=== PATIENT | female | born 1950 | race Caucasian/White ===

== ENCOUNTER 2018-07-15 12:32 | Emergency (ER) | payer MEDICARE ==
[2018-07-15] MEDS ORDERED: Sodium Chloride 0.9% 10 ML Syringe FLUSH PRN (13:19)
[2018-07-15] MEDS ORDERED: Nitroglycerin 0.4 MG Tab.SL SL ONE (13:19)
[2018-07-15] MEDS ORDERED: Sodium Chloride 0.9% 500 ML IV ONE (13:36)
--- NOTE | 2018-07-15 14:02 | EDM.PDOC ---
ED HPI GENERAL MEDICAL PROBLEM - General Chief Complaint: Chest Pain Stated Complaint: CHEST PAIN Time Seen by Provider: 07/15/18 13:15 Source of Information: Reports: Patient, Family History Limitations: Reports: No Limitations - History of Present Illness INITIAL COMMENTS - FREE TEXT/NARRATIVE: Kerri is a 67 year old female who presents to the ED today with family with c/ o of an ache in her left chest, pain is non radiating, pain started around 0900 , she has not taken anything for it. Patient endorses mild sob but feels that this may be anxiety related. Patient with significant recent hx including 9 stents being placed for a STEMI at [facility] and and Sunday this past week. Patient was discharged home on Plavix, Metoprolol, Lisinopril and Lipitor. Patient is still taking a daily aspirin. Patient was not discharged with any NTG. She has not taken anything for her symptoms today. The ache does not worsen with activity, really doesn't improve with rest, does not change with deep breath. Patient former smoker, no fever, no URI symptoms, no hx of blood clots. Patient is on Tramadol for her chronic back pain, last dose of this was last night. Onset: Today, Sudden Left Chest Pain Score (Numeric/FACES): 4 - Related Data Allergies Allergy/AdvReac Type Severity Reaction Status Date / Time No Known Allergies Allergy Verified 09/20/16 10:44 Home Meds: Home Meds Albuterol Sulfate [Proair Hfa] 2 puff IH Q4H PRN 03/20/16 [History] Amitriptyline [Elavil] 50 mg PO BEDTIME 03/20/16 [History] Aspirin [Adult Low Dose Aspirin EC] 81 mg PO DAILY 03/20/16 [History] Cholecalciferol (Vitamin D3) [Vitamin D3] 1,000 units PO DAILY 03/20/16 [History ] Fish Oil/DHA/EPA [Fish Oil 1,200 MG] 1 tab PO DAILY 03/20/16 [History] Fluticasone/Salmeterol [Advair 250-50 Diskus] 1 puff IH BID 03/20/16 [History] Lisinopril 5 mg PO DAILY 03/20/16 [History] Multivit-Min/FA/Lycopene/Lut [Centrum Silver Tablet] 1 tab PO DAILY 03/20/16 [ History] traMADol [Ultram] 50 mg PO Q6H PRN 07/26/16 [History] Clopidogrel [Plavix] 75 mg PO DAILY 07/15/18 [History] Metoprolol Succinate 25 mg PO DAILY 07/15/18 [History] atorvaSTATin [Lipitor] 80 mg PO BEDTIME 07/15/18 [History] Past Medical History Cardiovascular History: Reports: [place], Stents Musculoskeletal History: Reports: Back Pain, Chronic, Other (See Below) Other Musculoskeletal History: L shoulder pain. L leg pain. L elbow - Infectious Disease History Infectious Disease History: Reports: Chicken Pox - Past Surgical History Cardiovascular Surgical History: Reports: Coronary Artery Stent Social & Family History - Tobacco Use Smoking Status *Q: Never Smoker - Caffeine Use Caffeine Use: Reports: Coffee - Recreational Drug Use Recreational Drug Use: No ED ROS GENERAL - Review of Systems Review Of Systems: ROS reveals no pertinent complaints other than HPI. ED EXAM, GENERAL - Physical Exam Exam: See Below Exam Limited By: No Limitations General Appearance: Alert, WD/WN, Anxious Eye Exam: Bilateral Eye: EOMI Throat/Mouth: Normal Inspection, Normal Oropharynx Head: Atraumatic Neck: Normal Inspection, Supple, Non-Tender, Full Range of Motion Respiratory/Chest: No Respiratory Distress, Lungs Clear, Normal Breath Sounds, No Accessory Muscle Use, Chest Non-Tender Cardiovascular: Normal Peripheral Pulses, Regular Rate, Rhythm, No Edema, No Murmur GI/Abdominal: Normal Bowel Sounds, Soft, Non-Tender, No Distention Back Exam: Normal Inspection Extremities: Normal Inspection, Normal Range of Motion Neurological: Alert, Oriented, CN II-XII Intact Psychiatric: Normal Affect, Normal Mood Skin Exam: Warm, Dry, Intact, Ecchymosis (ecchymosis to right wrist where heart cath was performed) Lymphatic: No Adenopathy EKG INTERPRETATION EKG Date: 07/15/18 Rhythm: NSR Morrow: LAD-Left Morrow Deviation P-Wave: Present QRS: Normal ST-T: Other (T wave inversion in anterior and lateral leads) QT: Normal Course - Vital Signs Last Recorded V/S: Last Vital Signs Temp 35.9 C 07/15/18 12:40 Pulse 73 07/15/18 13:38 Resp 19 07/15/18 13:38 BP 133/73 07/15/18 13:38 Pulse Ox 97 07/15/18 13:38 Left sided chest ache, non radiating in post several stent placement at [facility] this past and Sunday. Please refer to HPI and focused exam. EKG with no acute ischemic findings, inverted T waves, no ectopy. Pain improved here with NTG from a 4 to a 2, did cause soft blood pressure so additional NTG not given, patient did get a dose of Tramadol, blood work returns with Troponin of 2, otherwise unremarkable, CXR unremarkable. I discussed patient's case with Cardiology at [facility], Dr. Schmitt who would like patient transferred back for repeat cath. Patient did have her aspirin and Plavix today. Patient update on plan of care and agreeable. Patient discharged via ALS in stable condition. - Orders/Labs/Meds Orders: Active Orders 24 hr Category Date Time Status Peripheral IV Care [RC] . DIRECTED Care 07/15/18 13:19 Active Sodium Chloride 0.9% [Saline Flush] Med 07/15/18 13:19 Active 10 ml FLUSH ASDIRECTED PRN Peripheral IV Insertion Adult [OM.PC] Routine Oth 07/15/18 13:19 Ordered Medication Orders Sodium Chloride (Saline Flush) 10 ml FLUSH ASDIRECTED PRN PRN Reason: Keep Vein Open Last Admin: 07/15/18 13:37 Dose: 10 ml Labs: Laboratory Tests 07/15/18 07/15/18 Range/Units 13:25 13:25 WBC 7.1 (4.5-11.0) K/uL RBC 4.58 (3.30-5.50) M/uL Hgb 13.5 (12.0-15.0) g/dL Hct 40.5 (36.0-48.0) % MCV 88 (80-98) fL MCH 30 (27-31) pg MCHC 33 (32-36) % Plt Count 328 (150-400) K/uL Neut % (Auto) 61 (36-66) % Lymph % (Auto) 25 (24-44) % Brooke % (Auto) 9 H (2-6) % Eos % (Auto) 4 (2-4) % Baso % (Auto) 1 (0-1) % Sodium 140 (140-148) mmol/L Potassium 4.0 (3.6-5.2) mmol/L Chloride 106 (100-108) mmol/L Carbon Dioxide 25 (21-32) mmol/L Anion Gap 9.0 (5.0-14.0) mmol/L BUN 13 (7-18) mg/dL Creatinine 0.7 (0.6-1.0) mg/dL Est Cr Clr Drug Dosing 66.28 mL/min Estimated GFR (MDRD) > 60 (>60) Glucose 101 (74-106) mg/dL Calcium 9.8 (8.5-10.1) mg/dL Total Bilirubin 0.9 (0.2-1.0) mg/dL AST 37 (15-37) U/L ALT 32 (12-78) U/L Alkaline Phosphatase 69 (46-116) U/L Troponin I 2.002 H* (0.000-0.056) ng/mL Total Protein 7.5 (6.4-8.2) g/dL Albumin 3.7 (3.4-5.0) g/dL Globulin 3.8 H (2.3-3.5) g/dL Albumin/Globulin Ratio 1.0 L (1.2-2.2) Meds: Medications Generic Name Dose Route Start Last Admin Trade Name Freq PRN Reason Stop Dose Admin Sodium Chloride 10 ml 07/15/18 13:19 07/15/18 13:37 Saline Flush FLUSH 10 ml ASDIRECTED PRN Administration Keep Vein Open Discontinued Medications Generic Name Dose Route Start Last Admin Trade Name Freq PRN Reason Stop Dose Admin Sodium Chloride 500 mls @ 500 mls/hr 07/15/18 13:36 07/15/18 13:46 Normal Saline IV 07/15/18 14:35 500 mls/hr .BOLUS ONE Administration Nitroglycerin 0.4 mg 07/15/18 13:19 07/15/18 13:37 Nitrostat SL 07/15/18 13:20 0.4 mg ONETIME ONE Administration Tramadol HCl 50 mg 07/15/18 14:18 07/15/18 14:36 Ultram PO 07/15/18 14:19 50 mg ONETIME ONE Administration Departure - Departure Time of Disposition: 15:45 Disposition: DC/Tfer to Acute Hospital 02 Reason for Transfer *Q: Other (repeat cath) Clinical Impression: Status post angioplasty with stent Chest pain Qualifiers: Chest pain type: unspecified Qualified Code(s): R07.9 - Chest pain, unspecified Referrals: Tod Zuñiga MD [Primary Care Provider] - Forms: ED Department Discharge - My Orders Last 24 Hours: My Active Orders 07/15/18 13:19 Peripheral IV Care [RC] . DIRECTED Sodium Chloride 0.9% [Saline Flush] 10 ml FLUSH ASDIRECTED PRN Peripheral IV Insertion Adult [OM.PC] Routine - Assessment/Plan Last 24 Hours: My Active Orders 07/15/18 13:19 Peripheral IV Care [RC] . DIRECTED Sodium Chloride 0.9% [Saline Flush] 10 ml FLUSH ASDIRECTED PRN Peripheral IV Insertion Adult [OM.PC] Routine
[2018-07-15] MEDS ORDERED: traMADol 50 MG Tab PO ONE (14:18)
--- NOTE | 2018-07-15 14:23 | CR ---
CHEST: 2 view CLINICAL HISTORY:Chest pain COMPARISON:None FINDINGS: The heart size is upper limits of normal. Pulmonary vascular and hilar structures are normal. No infiltrate effusion or pneumothorax is seen. IMPRESSION: Borderline cardiomegaly No acute cardiopulmonary process.
[2018-07-15 15:33] VITALS: BP 129/63
== END 2018-07-15 17:43 ==
LOC: JP.ED 12:32
DX: R07.9 Chest pain, unspecified (principal); I25.2 Old myocardial infarction; Z98.61 Coronary angioplasty status; Z95.5 Presence of coronary angioplasty implant and graft; Z79.82 Long term (current) use of aspirin; Z79.899 Other long term (current) drug therapy
CPT/HCPCS: 36415; 71046; 80053; 84484; 85025; 93005; 93010; 96360; 99285; A9270; J7040

== ENCOUNTER 2018-07-19 20:26 | Emergency (ER) | payer MEDICARE ==
--- NOTE | 2018-07-19 21:21 | EDM.PDOC ---
ED HPI GENERAL MEDICAL PROBLEM - General Chief Complaint: Cardiovascular Problem Stated Complaint: BLOOD CLOT Time Seen by Provider: 07/19/18 21:14 Source of Information: Reports: Patient, Family, RN Notes Reviewed History Limitations: Reports: No Limitations - History of Present Illness INITIAL COMMENTS - FREE TEXT/NARRATIVE: 67-year-old female presents emergency department today complaint of left leg pain, she recently had myocardial infarction and underwent stenting approximately 4 days prior she states she has no chest pain breathing is improved from 4 days ago. She still gets short of breath she feels this may be due to her asthma and recent medication changes. But her biggest concern today is that she has pain in her left calf since developed over the last 24 hours she also has some bruising dolomite ankle with no trauma Left Lower Leg Pain Score (Numeric/FACES): 7 - Related Data Allergies Allergy/AdvReac Type Severity Reaction Status Date / Time meperidine [From Demerol] Allergy Vomiting Verified 07/19/18 20:55 Sulfa (Sulfonamide Allergy Vomiting Verified 07/19/18 21:02 Antibiotics) tetracycline Allergy Rash Verified 07/19/18 20:55 Home Meds: Home Meds Albuterol Sulfate [Proair Hfa] 2 puff IH Q4H PRN 03/20/16 [History] Aspirin [Adult Low Dose Aspirin EC] 81 mg PO DAILY 03/20/16 [History] Cholecalciferol (Vitamin D3) [Vitamin D3] 1,000 units PO DAILY 03/20/16 [History ] Fish Oil/DHA/EPA [Fish Oil 1,200 MG] 1 tab PO DAILY 03/20/16 [History] Fluticasone/Salmeterol [Advair 250-50 Diskus] 1 puff IH BID 03/20/16 [History] Lisinopril 5 mg PO DAILY 03/20/16 [History] Multivit-Min/FA/Lycopene/Lut [Centrum Silver Tablet] 1 tab PO DAILY 03/20/16 [ History] traMADol [Ultram] 50 mg PO Q6H PRN 07/26/16 [History] Clopidogrel [Plavix] 75 mg PO DAILY 07/15/18 [History] Metoprolol Succinate 25 mg PO DAILY 07/15/18 [History] atorvaSTATin [Lipitor] 80 mg PO BEDTIME 07/15/18 [History] Past Medical History HEENT History: Reports: Impaired Vision Cardiovascular History: Reports: CAD, [place], Stents Musculoskeletal History: Reports: Back Pain, Chronic, Other (See Below) Other Musculoskeletal History: L shoulder pain. L leg pain. L elbow Endocrine/Metabolic History: Reports: Other (See Below) Other Endocrine/Metabolic History: possible thyroid problem Oncologic (Cancer) History: Reports: Cervix - Infectious Disease History Infectious Disease History: Reports: Chicken Pox, Measles - Past Surgical History Cardiovascular Surgical History: Reports: Coronary Artery Stent GI Surgical History: Reports: Cholecystectomy, Colonoscopy Female Surgical History: Reports: Hysterectomy Musculoskeletal Surgical History: Reports: Knee Replacement Social & Family History - Tobacco Use Smoking Status *Q: Never Smoker Second Hand Smoke Exposure: No - Caffeine Use Caffeine Use: Reports: None - Recreational Drug Use Recreational Drug Use: No ED ROS GENERAL - Review of Systems Review Of Systems: See Below Constitutional: Reports: No Symptoms HEENT: Reports: No Symptoms Respiratory: Reports: Shortness of Breath Cardiovascular: Reports: No Symptoms. Denies: Chest Pain GI/Abdominal: Reports: No Symptoms Musculoskeletal: Reports: Leg Pain ED EXAM, GENERAL - Physical Exam Exam: See Below Free Text/Narrative:: Examination the left leg the calf is soft however tender to the touch. Pulses + 2 there is small amount of ecchymosis lateral aspect pendant portion of the ankle Exam Limited By: No Limitations General Appearance: Alert, WD/WN, No Apparent Distress Respiratory/Chest: No Respiratory Distress Course - Vital Signs Last Recorded V/S: Last Vital Signs Temp 96.1 F 07/19/18 22:41 Pulse 70 07/19/18 22:41 Resp 16 07/19/18 22:41 BP 119/65 07/19/18 22:41 Pulse Ox 97 07/19/18 22:41 - Orders/Labs/Meds Orders: Active Orders 24 hr Category Date Time Status EKG Documentation Completion [RC] ASDIRECTED Care 07/19/18 21:44 Active VL Duplex Lwr Ext Veins Ltd Lt [US] Stat Exams 07/19/18 22:04 Ordered EKG 12 Lead [EK] Stat Ther 07/19/18 21:44 Ordered Labs: Laboratory Tests 07/19/18 07/19/18 07/19/18 Range/Units 21:17 21:17 21:18 WBC 6.8 (4.5-11.0) K/uL RBC 4.58 (3.30-5.50) M/uL Hgb 13.6 (12.0-15.0) g/dL Hct 40.5 (36.0-48.0) % MCV 88 (80-98) fL MCH 30 (27-31) pg MCHC 34 (32-36) % Plt Count 330 (150-400) K/uL Neut % (Auto) 56 (36-66) % Lymph % (Auto) 29 (24-44) % [place] % (Auto) 8 H (2-6) % Eos % (Auto) 7 H (2-4) % Baso % (Auto) 1 (0-1) % D-Dimer, Quantitative 512 H (0.0-400.0) ng/mL Sodium 140 (140-148) mmol/L Potassium 4.0 (3.6-5.2) mmol/L Chloride 104 (100-108) mmol/L Carbon Dioxide 24 (21-32) mmol/L Anion Gap 12.3 (5.0-14.0) mmol/L BUN 21 H D (7-18) mg/dL Creatinine 1.0 (0.6-1.0) mg/dL Est Cr Clr Drug Dosing 46.40 mL/min Estimated GFR (MDRD) 56 L (>60) Glucose 103 (74-106) mg/dL Calcium 9.8 (8.5-10.1) mg/dL Departure - Departure Time of Disposition: 23:30 Disposition: Home, Self-Care 01 Condition: Fair Clinical Impression: Left leg pain Referrals: Tod Zuñiga MD [Primary Care Provider] - Forms: ED Department Discharge Additional Instructions: Please followup with your primary care provider in 3-5 days if not better, please call return to the emergency department with worsening of symptoms. - My Orders Last 24 Hours: My Active Orders 07/19/18 21:44 EKG Documentation Completion [RC] ASDIRECTED EKG 12 Lead [EK] Stat 07/19/18 22:04 VL Duplex Lwr Ext Veins Ltd Lt [US] Stat - Assessment/Plan Last 24 Hours: My Active Orders 07/19/18 21:44 EKG Documentation Completion [RC] ASDIRECTED EKG 12 Lead [EK] Stat 07/19/18 22:04 VL Duplex Lwr Ext Veins Ltd Lt [US] Stat Plan: Assessment Acuity = acute Site and laterality = left leg pain Etiology = unclear etiology Manifestations = none Location of injury = Home Lab values = CBC, BMP unremarkable d-dimer was slightly elevated, ultrasound whole lower extremity negative for DVT, Wells score is 2 moderate risk Plan Did review lab work and blood work with her recommend follow-up with primary care or further evaluation of leg pain 3-5 days This note was dictated using [employer] voice recognition software please call with any questions on syntax or grammar.
[2018-07-19 22:42] VITALS: BP 119/65
--- NOTE | 2018-07-19 23:49 | CRLUS ---
INDICATION: Left calf pain. Elevated D-dimer. COMPARISON: None available. FINDINGS: Ultrasound of the venous drainage of the left lower extremity shows no evidence of deep venous thrombosis. There is normal antegrade flow from the posterior tibial and peroneal veins superiorly through the common femoral vein. There is normal augmentation and compressibility of the veins. The right common femoral vein is widely patent. IMPRESSION: No evidence of deep venous thrombosis on ultrasound examination of the left lower extremity. Dictated by Elie Hamlin MD @ Jul 19 2018 11:45PM Signed by Dr. Elie Hamlin @ Jul 19 2018 11:46PM
== END 2018-07-19 23:35 | disposition home or self-care (01) ==
LOC: JP.ED 20:26
DX: M79.81 Nontraumatic hematoma of soft tissue (principal); M79.605 Pain in left leg; I25.2 Old myocardial infarction; I25.10 Atherosclerotic heart disease of native coronary artery without angina pectoris; Z79.82 Long term (current) use of aspirin; Z79.899 Other long term (current) drug therapy; Z88.2 Allergy status to sulfonamides; Z88.1 Allergy status to other antibiotic agents; Z88.5 Allergy status to narcotic agent
CPT/HCPCS: 36415; 80048; 85025; 85379; 93005; 93971-LT; 99284-25

== ENCOUNTER 2019-06-18 16:18 | Emergency (ER) | payer MEDICARE ==
[2019-06-18] MEDS ORDERED: HYDROmorphone 1 MG/ML Syringe IM ONE (17:37)
--- NOTE | 2019-06-18 18:27 | EDM.PDOC ---
ED HPI GENERAL MEDICAL PROBLEM - General Chief Complaint: Back Pain or Injury Stated Complaint: MID BACK PAIN SHOULD AND ARM WEAK Time Seen by Provider: 06/18/19 16:45 Source of Information: Reports: Patient History Limitations: Reports: No Limitations - History of Present Illness INITIAL COMMENTS - FREE TEXT/NARRATIVE: 68-year-old female comes in with back pain for the past 4 days. It is pleuritic in nature, hurts to breathe, but getting worse and she has a significant cardiac history. Also intermittent shortness of breath but she thinks it is because it hurts to breathe, not because she is air hungry. No cough, no fever, no cold symptoms, no trauma. No nausea or vomiting. 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 On arrival she still has persistent left thoracic discomfort worse with breathing. Vitals are normal, O2 saturations 99%. She does have a history of fibromyalgia but this is "worse". Onset: Gradual Duration: Day(s): (Up to 7 days of symptoms, worsening) Location: Reports: Back Worsens with: Reports: Breathing, Movement Associated Symptoms: Reports: Shortness of Breath. Denies: Confusion, Chest Pain, Cough, Nausea/Vomiting Left Upper Back Pain Score (Numeric/FACES): 10 - Related Data Allergies Allergy/AdvReac Type Severity Reaction Status Date / Time meperidine [From Demerol] Allergy Vomiting Verified 06/18/19 16:37 mupirocin Allergy Other Verified 06/18/19 16:37 Sulfa (Sulfonamide Allergy Vomiting Verified 06/18/19 16:37 Antibiotics) tetracycline Allergy Rash Verified 06/18/19 16:37 Home Meds: Home Meds Albuterol Sulfate [Proair Hfa] 2 puff IH Q4H PRN 03/20/16 [History] Aspirin [Adult Low Dose Aspirin EC] 81 mg PO DAILY 03/20/16 [History] Cholecalciferol (Vitamin D3) [Vitamin D3] 1,000 units PO DAILY 03/20/16 [History ] Fluticasone Propion/Salmeterol [Advair 250-50 Diskus] 1 puff IH BID 03/20/16 [ History] Lisinopril 5 mg PO DAILY 03/20/16 [History] Multivit-Min/FA/Lycopen/Lutein [Centrum Silver Tablet] 1 tab PO DAILY 03/20/16 [ History] traMADol [Ultram] 50 mg PO Q6H PRN 07/26/16 [History] Clopidogrel [Plavix] 75 mg PO DAILY 07/15/18 [History] Metoprolol Succinate 25 mg PO DAILY 07/15/18 [History] atorvaSTATin [Lipitor] 40 mg PO BEDTIME 07/15/18 [History] Bacitracin/HC/Neomycin/Polymyx [Cortisporin Oint] 2 drop EARBOTH TID PRN [History] Ketotifen [Ketotifen 0.025% Ophth Soln] 1 drop EYEBOTH ASDIRECTED PRN 01/03/19 [ History] Ubidecarenone [Co Q-10] 200 mg PO DAILY 01/06/19 [History] Past Medical History HEENT History: Reports: Cataract, Impaired Vision Cardiovascular History: Reports: CAD, High Cholesterol, Hypertension, [place], Stents Respiratory History: Reports: Asthma Gastrointestinal History: Reports: GERD [employer]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 L leg pain. L elbow Neurological History: Reports: Migraines Endocrine/Metabolic History: Reports: Other (See Below) Other Endocrine/Metabolic History: possible thyroid problem Hematologic History: Reports: Anticoagulation Therapy Oncologic (Cancer) History: Reports: Cervix - Infectious Disease History Infectious Disease History: Reports: Chicken Pox, Measles - Past Surgical History Head Surgeries/Procedures: Reports: None HEENT Surgical History: Reports: None Cardiovascular Surgical History: Reports: Coronary Artery Stent Other Cardiovascular Surgeries/Procedures: stents x9 Respiratory Surgical History: Reports: None GI Surgical History: Reports: Cholecystectomy, Colonoscopy Female Surgical History: Reports: Hysterectomy Endocrine Surgical History: Reports: None Neurological Surgical History: Reports: None Musculoskeletal Surgical History: Reports: Carpal Tunnel, Knee Replacement Oncologic Surgical History: Reports: None Dermatological Surgical History: Reports: None Social & Family History - Tobacco Use Smoking Status *Q: Former Smoker Used Tobacco, but Quit: Yes Month/Year Tobacco Last Used: 1985 Second Hand Smoke Exposure: No - Caffeine Use Caffeine Use: Reports: None - Recreational Drug Use Recreational Drug Use: No ED ROS GENERAL - Review of Systems Review Of Systems: See Below Constitutional: Denies: Fever, Chills Respiratory: Reports: Shortness of Breath. Denies: Cough Cardiovascular: Denies: Chest Pain GI/Abdominal: Denies: Abdominal Pain, Nausea, Vomiting : Reports: No Symptoms Skin: Reports: No Symptoms. Denies: Rash Neurological: Denies: Paresthesia Psychiatric: Reports: Anxiety ED EXAM, UPPER BACK/NECK PAIN - Physical Exam Exam: See Below Exam Limited By: No Limitations General Appearance: Alert, No Apparent Distress, Anxious Head Exam: Atraumatic Neck Exam: Non-Tender Cardiovascular/Respiratory: Regular Rate, Rhythm, Normal Breath Sounds. No: Murmur GI/Abdominal: Soft, Non-Tender Back Exam: Paraspinal Tenderness (Patient is very tender along the thoracic spine bilaterally at T6-T9 on the lower aspect of the shoulder blades, worse on the left. No rashes present, no bruising or asymmetry) Neurologic: No Motor/Sensory Deficits Psychiatric: Anxious Skin Exam: Normal Color, Warm/Dry Course - Vital Signs Last Recorded V/S: Last Vital Signs Temp 96.1 F L 06/18/19 16:36 Pulse 63 06/18/19 18:39 Resp 10 L 06/18/19 18:39 BP 105/54 L 06/18/19 18:39 Pulse Ox 100 06/18/19 18:39 - Orders/Labs/Meds Orders: Active Orders 24 hr Category Date Time Status EKG Documentation Completion [RC] ASDIRECTED Care 06/18/19 16:57 Active Chest 2V [CR] Routine Exams 06/18/19 16:57 Taken EKG 12 Lead [EK] Routine Ther 06/18/19 16:57 Ordered Labs: Laboratory Tests 06/18/19 06/18/19 Range/Units 17:07 17:07 WBC 5.5 (4.5-11.0) K/uL RBC 4.53 (3.30-5.50) M/uL Hgb 13.1 (12.0-15.0) g/dL Hct 40.4 (36.0-48.0) % MCV 89 (80-98) fL MCH 29 (27-31) pg MCHC 32 (32-36) % Plt Count 240 (150-400) K/uL Neut % (Auto) 51 (36-66) % Lymph % (Auto) 31 (24-44) % [place] % (Auto) 10 H (2-6) % Eos % (Auto) 7 H (2-4) % Baso % (Auto) 1 (0-1) % Sodium 141 (140-148) mmol/L Potassium 4.0 (3.6-5.2) mmol/L Chloride 105 (100-108) mmol/L Carbon Dioxide 27 (21-32) mmol/L Anion Gap 9.0 (5.0-14.0) mmol/L BUN 24 H (7-18) mg/dL Creatinine 0.7 (0.6-1.0) mg/dL Est Cr Clr Drug Dosing 65.40 mL/min Estimated GFR (MDRD) > 60 (>60) Glucose 79 (74-106) mg/dL Calcium 8.9 (8.5-10.1) mg/dL Troponin I < 0.017 (0.000-0.056) ng/mL Meds: Medications Discontinued Medications Generic Name Dose Route Start Last Admin Trade Name Freq PRN Reason Stop Dose Admin Hydromorphone HCl 1 mg 06/18/19 17:37 06/18/19 17:42 Dilaudid IM 06/18/19 17:38 1 mg ONETIME ONE Administration - Re-Assessments/Exams Free Text/Narrative Re-Assessment/Exam: 06/18/19 18:27 CBC, BMP and troponin were drawn all normal. Two-view chest x-ray was also normal. Patient remained fairly uncomfortable so was given a 1 mg Dilaudid injection. She did have some relief from this. She was discharged with 10 additional doses of 2 mg Dilaudid tablets to take up to every 6-8 hours and will recheck in the next 48 to 72 hours if worsening. She can recheck next week if not improving satisfactorily, a physical therapy consultation may be necessary or further evaluation. Departure - Departure Time of Disposition: 18:56 Disposition: Home, Self-Care 01 Clinical Impression: Acute thoracic back pain Qualifiers: Back pain laterality: left Qualified Code(s): M54.6 - Pain in thoracic spine - Discharge Information Instructions: Acute Back Pain, Adult Referrals: Tod Zuñiga MD [Primary Care Provider] - Forms: ED Department Discharge Care Plan Goals: Continue your regular medications except tramadol, use Dilaudid instead. Recheck in 2 to 3 days if not improving satisfactorily, or sooner if worsening. Sepsis Event Note - Evaluation Sepsis Screening Result: No Definite Risk - Focused Exam Date Exam was Performed: 06/19/19 Time Exam was Performed: 07:18 - My Orders Last 24 Hours: My Active Orders 06/18/19 16:57 EKG Documentation Completion [RC] ASDIRECTED Chest 2V [CR] Routine EKG 12 Lead [EK] Routine - Assessment/Plan Last 24 Hours: My Active Orders 06/18/19 16:57 EKG Documentation Completion [RC] ASDIRECTED Chest 2V [CR] Routine EKG 12 Lead [EK] Routine
[2019-06-18 18:40] VITALS: BP 105/54; PULSE 63
--- NOTE | 2019-06-19 10:27 | CR ---
CHEST: 2 view CLINICAL HISTORY:Dyspnea COMPARISON:June 2018 FINDINGS: The heart size, pulmonary vascularity and hilar structures are normal. There is a vague nodular density in the anterior chest on the lateral view. It measures just over 1 cm. IMPRESSION: No acute cardiopulmonary process. Vague nodular density over the anterior chest. This may represent some super imposition but a nodule is not excluded. This would likely be in the medial segment of the right middle lobe. Short-term follow-up chest x-ray or noncontrast CT chest recommended
== END 2019-06-18 18:56 | disposition home or self-care (01) ==
LOC: JP.ED 16:18
DX: M54.6 Pain in thoracic spine (principal); I25.10 Atherosclerotic heart disease of native coronary artery without angina pectoris; E78.00 Pure hypercholesterolemia, unspecified; I10 Essential (primary) hypertension; J45.909 Unspecified asthma, uncomplicated; K21.9 Gastro-esophageal reflux disease without esophagitis; I25.2 Old myocardial infarction; Z88.5 Allergy status to narcotic agent; Z88.2 Allergy status to sulfonamides; Z88.1 Allergy status to other antibiotic agents; Z95.5 Presence of coronary angioplasty implant and graft; Z79.82 Long term (current) use of aspirin; Z79.02 Long term (current) use of antithrombotics/antiplatelets; Z79.899 Other long term (current) drug therapy; Z87.891 Personal history of nicotine dependence
CPT/HCPCS: 36415; 71046; 71046-26; 80048; 84484; 85025; 93005; 93010; 96372; 99283; 99285-25; J1170

== ENCOUNTER 2019-09-25 02:52 | Emergency (ER) | payer MEDICARE ==
[2019-09-25 03:05] VITALS: BP 128/65; PULSE 60
--- NOTE | 2019-09-25 03:21 | EDM.PDOC ---
ED HPI GENERAL MEDICAL PROBLEM - General Chief Complaint: ENT Problem Stated Complaint: BLEEDING RIGHT EAR Time Seen by Provider: 09/25/19 03:06 Source of Information: Reports: Patient, RN Notes Reviewed History Limitations: Reports: No Limitations - History of Present Illness INITIAL COMMENTS - FREE TEXT/NARRATIVE: 69-year-old female presents emergency department a complaint of blood coming from her right ear, she does take Plavix has been using Corticosporin otic on a Q-tip and then putting it around the ear in the canal yesterday she did notice some blood on the Q-tip, felt lightheaded this evening - Related Data Allergies Allergy/AdvReac Type Severity Reaction Status Date / Time meperidine [From Demerol] Allergy Vomiting Verified 09/25/19 02:59 mupirocin Allergy Other Verified 09/25/19 02:59 Sulfa (Sulfonamide Allergy Vomiting Verified 09/25/19 02:59 Antibiotics) tetracycline Allergy Rash Verified 09/25/19 02:59 Home Meds: Home Meds Albuterol Sulfate [Proair Hfa] 2 puff IH Q4H PRN 03/20/16 [History] Aspirin [Adult Low Dose Aspirin EC] 81 mg PO DAILY 03/20/16 [History] Cholecalciferol (Vitamin D3) [Vitamin D3] 1,000 units PO DAILY 03/20/16 [History] Fluticasone Propion/Salmeterol [Advair 250-50 Diskus] 1 puff IH BID 03/20/16 [History] Lisinopril 5 mg PO DAILY 03/20/16 [History] Multivit-Min/FA/Lycopen/Lutein [Centrum Silver Tablet] 1 tab PO DAILY 03/20/16 [History] traMADol [Ultram] 50 mg PO Q6H PRN 07/26/16 [History] Clopidogrel [Plavix] 75 mg PO DAILY 07/15/18 [History] Metoprolol Succinate 25 mg PO DAILY 07/15/18 [History] atorvaSTATin [Lipitor] 40 mg PO BEDTIME 07/15/18 [History] Bacitracin/HC/Neomycin/Polymyx [Cortisporin Oint] 2 drop EARBOTH TID PRN 1 03/05/18 [History] Ketotifen [Ketotifen 0.025% Ophth Soln] 1 drop EYEBOTH ASDIRECTED PRN 01/03/19 [History] Ubidecarenone [Co Q-10] 200 mg PO DAILY 01/06/19 [History] Past Medical History HEENT History: Reports: Cataract, Impaired Vision Cardiovascular History: Reports: CAD, High Cholesterol, Hypertension, [place], Stents Respiratory History: Reports: Asthma Gastrointestinal History: Reports: GERD [employer]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 L leg pain. L elbow Neurological History: Reports: Migraines Endocrine/Metabolic History: Reports: Other (See Below) Other Endocrine/Metabolic History: possible thyroid problem Hematologic History: Reports: Anticoagulation Therapy Oncologic (Cancer) History: Reports: Cervix - Infectious Disease History Infectious Disease History: Reports: Chicken Pox, Measles, Mumps - Past Surgical History Head Surgeries/Procedures: Reports: None HEENT Surgical History: Reports: None Cardiovascular Surgical History: Reports: Coronary Artery Stent Other Cardiovascular Surgeries/Procedures: stents x9 Respiratory Surgical History: Reports: None GI Surgical History: Reports: Cholecystectomy, Colonoscopy Female Surgical History: Reports: Hysterectomy Endocrine Surgical History: Reports: None Neurological Surgical History: Reports: None Musculoskeletal Surgical History: Reports: Carpal Tunnel, Knee Replacement Oncologic Surgical History: Reports: None Dermatological Surgical History: Reports: None Social & Family History - Tobacco Use Smoking Status *Q: Former Smoker Used Tobacco, but Quit: Yes Month/Year Tobacco Last Used: 1979 - Caffeine Use Caffeine Use: Reports: Tea - Recreational Drug Use Recreational Drug Use: No ED ROS ENT - Review of Systems Review Of Systems: See Below Constitutional: Reports: No Symptoms HEENT: Reports: Ear Discharge, Ear Pain ED EXAM, ENT - Physical Exam Exam: See Below Text/Narrative:: Examination of the right ear the membrane is clear and marquez however the canal is markedly edematous there is blood and thick purulent drainage present Exam Limited By: No Limitations General Appearance: Alert, WD/WN, No Apparent Distress Course - Vital Signs Last Recorded V/S: Last Vital Signs Temp 98.1 F 09/25/19 03:00 Pulse 60 09/25/19 03:00 Resp 14 09/25/19 03:00 BP 128/65 09/25/19 03:00 Pulse Ox 100 09/25/19 03:00 Departure - Departure Time of Disposition: :20 Disposition: Home, Self-Care 01 Condition: Fair Clinical Impression: Otitis externa Qualifiers: Otitis externa type: hemorrhagic Chronicity: acute Laterality: right Qualified Code(s): H60.321 - Hemorrhagic otitis externa, right ear - Discharge Information Instructions: Ear Drops, Adult, [id number], Otitis Externa Referrals: Tod Zuñiga MD [Primary Care Provider] - Additional Instructions: Change her Corticosporin otic from a Q-tip application 2 drops 4 times a day for the next 7 days, recommend following up with your ENT within the next 7 to 10 days for reevaluation, call return to the emergency department with worsening of symptoms Sepsis Event Note (ED) - Evaluation Sepsis Screening Result: No Definite Risk - Focused Exam Vital Signs: Vital Signs Temp Pulse Resp BP Pulse Ox 09/25/19 03:00 98.1 F 60 14 128/65 100 - Assessment/Plan Plan: Assessment Acuity = acute Site and laterality = right otitis externa Etiology = unknown suspicious for underlying break in the skin leading to infectious process probable bacterial cause Manifestations = none Location of injury = Home Lab values = none Plan Change treatment with Corticosporin instead of a Q-tip placed drops in the ear follow-up with ENT next week This note was dictated using [employer] voice recognition software please call with any questions on syntax or grammar.
== END 2019-09-25 03:28 | disposition home or self-care (01) ==
LOC: JP.ED 02:52
DX: H60.321 Hemorrhagic otitis externa, right ear (principal); I25.10 Atherosclerotic heart disease of native coronary artery without angina pectoris; E78.00 Pure hypercholesterolemia, unspecified; I10 Essential (primary) hypertension; I25.2 Old myocardial infarction; Z95.5 Presence of coronary angioplasty implant and graft; J45.909 Unspecified asthma, uncomplicated; Z79.02 Long term (current) use of antithrombotics/antiplatelets; Z87.891 Personal history of nicotine dependence; Z88.5 Allergy status to narcotic agent; Z88.1 Allergy status to other antibiotic agents; Z88.2 Allergy status to sulfonamides; Z79.82 Long term (current) use of aspirin; Z79.899 Other long term (current) drug therapy
CPT/HCPCS: 99282; 99283

== ENCOUNTER 2020-06-17 08:03 | Day surgery (SDC) | payer MEDICARE ==
[2020-06-17] MEDS ORDERED: Sodium Chloride 0.9% 10 ML Syringe FLUSH PRN (08:30)
[2020-06-17 09:28] VITALS: BP 121/71; PULSE 64
--- NOTE | 2020-06-17 16:27 | OR ---
DATE OF PROCEDURE: 06/17/2020 SURGEON: Farida Campuzano MD POSTOPERATIVE CARE: Postoperative care will be provided mainly at the [address] [place] [address] [facility] in conjunction with [facility]. PREOPERATIVE DIAGNOSIS: Cataract, right eye. POSTOPERATIVE DIAGNOSIS: Cataract, right eye. PROCEDURE: Phacoemulsification with intraocular lens placement, right eye. ANESTHESIA: Topical and intracameral. ESTIMATED BLOOD LOSS: Minimal. COMPLICATIONS: None. PATHOLOGY SPECIMENS: None. SURGICAL FINDINGS: None. INDICATION FOR PROCEDURE: The patient is a 69-year-old female with history of a visually significant cataract in the right eye, which interfered with activities of daily living. This consisted of a nuclear sclerosis cataract. Following careful discussion of the risks, benefits and alternatives to cataract extraction with intraocular lens placement including blindness and , the patient elected to proceed, and informed, written consent was obtained prior to the procedure. DESCRIPTION OF THE PROCEDURE: The patient was previously identified, and a be placed above the right eye. All sources, including the patient, indicated that the right eye was the correct eye. The patient was subsequently taken to the operating room where standard monitors were applied. The patient was then prepped and draped in the usual sterile fashion for ophthalmic surgery. Attention was first directed at the 12 o'clock position where a paracentesis port was fashioned. Shugar solution followed by Viscoat was instilled into the eye. Attention was then directed to the 8:30 position where a triplanar incision was made in a near-clear manner using a keratome. A continuous capsulorrhexis was then made using a combination of the cystotome and Utrata forceps. Hydrodissection was achieved using a balanced salt solution, and the lens rotated nicely. Phacoemulsification was then done using a modified [id number] technique without complication. Phaco time was 4.41 CDE. The remaining cortex was removed using the irrigation/aspiration handpiece. Provisc was then instilled into the eye. A Technis lens, model DCB00, at 22.5 diopters was then placed in the capsular bag using an Eagar injector. The remaining viscoelastic was removed using the irrigation/aspiration forceps. All wounds were then checked and found to be watertight. The lid speculum and drapes were removed. Maxitrol ointment was placed in the patient's right eye, and the eye was shielded. The patient tolerated the procedure well. The patient was instructed to follow up tomorrow. All needle and sponge counts were correct at the end of the procedure. Farida Campuzano MD /[id number]
== END 2020-06-17 09:30 | disposition home or self-care (01) ==
LOC: JP.SDS 08:03
PROVIDERS: ATTEND Ophthalmology
DX: H26.9 Unspecified cataract (principal); J45.909 Unspecified asthma, uncomplicated
CPT/HCPCS: 66984; V2632

== ENCOUNTER 2020-07-08 06:41 | Day surgery (SDC) | payer MEDICARE ==
[2020-07-08] MEDS ORDERED: Sodium Chloride 0.9% 10 ML Syringe FLUSH PRN (07:00)
[2020-07-08 09:24] VITALS: BP 157/87; PULSE 70
--- NOTE | 2020-07-08 11:59 | OR ---
DATE OF PROCEDURE: 07/08/2020 SURGEON: Farida Campuzano MD POSTOPERATIVE CARE: Postoperative care will be provided mainly at the [address] [place] [address] [facility] in conjunction with [facility]. PREOPERATIVE DIAGNOSIS: Cataract, left eye. POSTOPERATIVE DIAGNOSIS: Cataract, left eye. PROCEDURE: Phacoemulsification with intraocular lens placement, left eye. ANESTHESIA: Topical and intracameral. ESTIMATED BLOOD LOSS: Minimal. COMPLICATIONS: None. PATHOLOGY SPECIMENS: None. SURGICAL FINDINGS: None. INDICATION FOR PROCEDURE: The patient is a 69-year-old female with history of a visually significant cataract in the left eye, which interfered with activities of daily living. This consisted of a nuclear sclerosis cataract. Following careful discussion of the risks, benefits and alternatives to cataract extraction with intraocular lens placement including blindness and , the patient elected to proceed, and informed, written consent was obtained prior to the procedure. DESCRIPTION OF THE PROCEDURE: The patient was previously identified, and a be placed above the left eye. All sources, including the patient, indicated that the left eye was the correct eye. The patient was subsequently taken to the operating room where standard monitors were applied. The patient was then prepped and draped in the usual sterile fashion for ophthalmic surgery. Attention was first directed at the 12 o'clock position where a paracentesis port was fashioned. Shugar solution followed by Viscoat was instilled into the eye. Attention was then directed to the 8:30 position where a triplanar incision was made in a near-clear manner using a keratome. A continuous capsulorrhexis was then made using a combination of the cystotome and Utrata forceps. Hydrodissection was achieved using a balanced salt solution, and the lens rotated nicely. Phacoemulsification was then done using a modified [id number] technique without complication. Phaco time was 4.01 CDE. The remaining cortex was removed using the irrigation/aspiration handpiece. Provisc was then instilled into the eye. A Technis lens, model DCB00 at 22.5 diopters was then placed in the capsular bag using an Woden injector. The remaining viscoelastic was removed using the irrigation/aspiration forceps. All wounds were then checked and found to be watertight. The lid speculum and drapes were removed. Maxitrol ointment was placed in the patient's left eye, and the eye was shielded. The patient tolerated the procedure well. The patient was instructed to follow up tomorrow. All needle and sponge counts were correct at the end of the procedure. There were no surgical findings. Farida Campuzano MD /[id number]
== END 2020-07-08 09:26 | disposition home or self-care (01) ==
LOC: JP.SDS 06:41
PROVIDERS: ATTEND Ophthalmology
DX: H25.12 Age-related nuclear cataract, left eye (principal)
CPT/HCPCS: 66984; V2632

== ENCOUNTER 2020-07-13 09:13 | Emergency (ER) | payer MEDICARE ==
[2020-07-13 09:26] VITALS: BP 141/103; PULSE 72
[2020-07-13] MEDS ORDERED: Gabapentin 100 MG Cap PO ONE (10:06)
--- NOTE | 2020-07-13 11:35 | EDM.PDOC ---
ED HPI GENERAL MEDICAL PROBLEM - General Chief Complaint: Lower Extremity Injury/Pain Stated Complaint: came from clinic right leg Time Seen by Provider: 07/13/20 09:35 Source of Information: Reports: Patient History Limitations: Reports: No Limitations - History of Present Illness INITIAL COMMENTS - FREE TEXT/NARRATIVE: pt arrived with burning pain and some swelling over the site where a ladder contused her leg. Onset: Gradual, Other (ladder fell on the leg on sat) Duration: Hour(s): Location: Reports: Lower Extremity, Right Associated Symptoms: Reports: No Other Symptoms, Other (pt does have burning pain in the area of bruising. ) - Related Data Allergies Allergy/AdvReac Type Severity Reaction Status Date / Time amoxicillin Allergy Hives Verified 07/13/20 09:29 meperidine [From Demerol] Allergy Vomiting Verified 07/13/20 09:29 mupirocin Allergy Other Verified 07/13/20 09:29 Sulfa (Sulfonamide Allergy Vomiting Verified 07/13/20 09:29 Antibiotics) tetracycline Allergy Rash Verified 07/13/20 09:29 Home Meds: Home Meds Albuterol Sulfate [Proair Hfa] 2 puff IH Q4H PRN 03/20/16 [History] Aspirin [Adult Low Dose Aspirin EC] 81 mg PO DAILY 03/20/16 [History] Cholecalciferol (Vitamin D3) [Vitamin D3] 1,000 units PO DAILY 03/20/16 [History] Fluticasone Propion/Salmeterol [Advair 250-50 Diskus] 1 puff IH BID 03/20/16 [History] Multivit-Min/FA/Lycopen/Lutein [Centrum Silver Tablet] 1 tab PO DAILY 03/20/16 [History] traMADol [Ultram] 50 - 100 mg PO Q6H PRN 07/26/16 [History] Clopidogrel [Plavix] 75 mg PO DAILY 07/15/18 [History] Metoprolol Succinate 50 mg PO DAILY 07/15/18 [History] Nitroglycerin [Nitrostat] 0.4 mg SL ASDIRECTED PRN 06/15/20 [History] atorvaSTATin Calcium [Lipitor] 40 mg PO DAILY 06/15/20 [History] Albuterol Sulfate 0.63 mg IH Q6H 07/07/20 [History] Past Medical History HEENT History: Reports: Cataract, Impaired Vision Cardiovascular History: Reports: CAD, High Cholesterol, Hypertension, MS, Stents Respiratory History: Reports: Asthma Gastrointestinal History: Reports: GERD 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 L leg pain. L elbow Neurological History: Reports: Migraines Endocrine/Metabolic History: Reports: Other (See Below) Other Endocrine/Metabolic History: possible thyroid problem Hematologic History: Reports: Anticoagulation Therapy Oncologic (Cancer) History: Reports: Cervix Dermatologic History: Reports: Other (See Below) Other Dermatologic History: rash from medication allergy - Infectious Disease History Infectious Disease History: Reports: Chicken Pox, Measles, Mumps - Past Surgical History Head Surgeries/Procedures: Reports: None HEENT Surgical History: Reports: Cataract Surgery Cardiovascular Surgical History: Reports: Coronary Artery Stent Other Cardiovascular Surgeries/Procedures: stents x9 Respiratory Surgical History: Reports: None GI Surgical History: Reports: Cholecystectomy, Colonoscopy Female Surgical History: Reports: Hysterectomy, Salpingo-Oophorectomy Endocrine Surgical History: Reports: None Neurological Surgical History: Reports: None Musculoskeletal Surgical History: Reports: Carpal Tunnel, Knee Replacement Oncologic Surgical History: Reports: None Dermatological Surgical History: Reports: None Social & Family History - Tobacco Use Tobacco Use Status *Q: Never Tobacco User Second Hand Smoke Exposure: No - Caffeine Use Caffeine Use: Reports: Energy Drinks Other Caffeine Use: decaf coffee Caffeine Use Comment: One per day - Recreational Drug Use Recreational Drug Use: No Review of Systems - Review of Systems Review Of Systems: See Below Constitutional: Reports: No Symptoms Eyes: Reports: No Symptoms Ears: Reports: No Symptoms Nose: Reports: No Symptoms Mouth/Throat: Reports: No Symptoms Respiratory: Reports: No Symptoms Cardiovascular: Reports: No Symptoms GI/Abdominal: Reports: No Symptoms Genitourinary: Reports: No Symptoms Musculoskeletal: Reports: Other ( Burning pain in the lateral aspect of the rt lower leg where a ladder hit the leg. ) Skin: Reports: Bruising ED EXAM, GENERAL - Physical Exam Exam: See Below Free Text/Narrative:: pt has bruising and burning pain in the lateral aspect of the rt lower leg. Exam Limited By: No Limitations General Appearance: Alert, Anxious, Mild Distress Ears: Normal TMs Nose: Normal Inspection Throat/Mouth: Normal Inspection Head: Atraumatic Neck: Normal Inspection Respiratory/Chest: No Respiratory Distress Cardiovascular: Regular Rate, Rhythm Extremities: Other (pt has bruising and burning pain in the lateral aspect of the lower leg. She has slight swelling. She has great filling and excellent pulses. ) Neurological: Alert, Oriented, Normal Cognition Psychiatric: Anxious Course - Vital Signs Last Recorded V/S: Last Vital Signs Temp 35.9 C L 07/13/20 09:39 Pulse 72 07/13/20 09:39 Resp 16 07/13/20 09:39 BP 141/103 H 07/13/20 09:39 Pulse Ox 99 07/13/20 09:39 - Orders/Labs/Meds Orders: Active Orders 24 hr Category Date Time Status Consult to Orthopedic Clinic [CONS] Routine Cons 07/13/20 11:28 Ordered VL Duplex Lwr Ext Veins Ltd Rt [US] Stat Exams 07/13/20 10:05 Ordered Meds: Medications Discontinued Medications Generic Name Dose Route Start Last Admin Trade Name Freq PRN Reason Stop Dose Admin Gabapentin 100 mg 07/13/20 10:06 07/13/20 10:17 Gabapentin 100 Mg Cap PO 07/13/20 10:07 100 mg ONETIME ONE Administration - Re-Assessments/Exams Free Text/Narrative Re-Assessment/Exam: 07/13/20 11:34 pt had a US of the leg which revealed no clots, She has good arterial flow to the area. She did not seem to have a tight compartment. Departure - Departure Time of Disposition: 11:35 Disposition: Home, Self-Care 01 Condition: Fair Clinical Impression: Hematoma of right lower leg - Discharge Information Instructions: Acute Compartment Syndrome Referrals: Tod Zuñiga MD [Primary Care Provider] - Forms: ED Department Discharge Care Plan Goals: probale nerve irritation from the contusion, elevat. cool pack, continue tramodol, gabapentin 100mg qid for next week, if sudden increase in swelling return, appt with Dr Krishnan if persistent symptoms. Sepsis Event Note (ED) - Evaluation Sepsis Screening Result: No Definite Risk - Focused Exam Vital Signs: Vital Signs Temp Pulse Resp BP Pulse Ox 07/13/20 09:39 35.9 C L 72 16 141/103 H 99 07/13/20 09:24 35.9 C L 72 16 141/103 H 99 - My Orders Last 24 Hours: My Active Orders 07/13/20 10:05 VL Duplex Lwr Ext Veins Ltd Rt [US] Stat 07/13/20 11:28 Consult to Orthopedic Clinic [CONS] Routine - Assessment/Plan Last 24 Hours: My Active Orders 07/13/20 10:05 VL Duplex Lwr Ext Veins Ltd Rt [US] Stat 07/13/20 11:28 Consult to Orthopedic Clinic [CONS] Routine
--- NOTE | 2020-07-13 12:15 | CRLUS ---
INDICATION: Injury to right anterior mid calf with pain. TECHNIQUE: Ultrasound venous duplex lower right extremity. Compression venous exam was performed using marquez-scale, color Doppler, and spectral Doppler imaging. COMPARISON: None. FINDINGS: Sonographic imaging demonstrates the right common femoral, deep femoral, superficial femoral, popliteal, posterior tibial and greater saphenous and the contralateral left common femoral veins to be fully compressible with normal color Doppler blood flow. Small hematoma in the mid anterior lower leg measures approximately 1 cm. IMPRESSION: Normal right lower extremity venous ultrasound, no sign of deep venous thrombosis. Small hematoma is in the lower leg area of injury. Dictated by Sukhi Lui MD @ 07/13/2020 12:14:35 PM Dictated by: Sukhi Lui MD @ 07/13/2020 12:14:39 (Electronically Signed)
== END 2020-07-13 11:51 | disposition home or self-care (01) ==
LOC: JP.ED 09:13
DX: S80.11XA Contusion of right lower leg, initial encounter (principal); I25.10 Atherosclerotic heart disease of native coronary artery without angina pectoris; E78.00 Pure hypercholesterolemia, unspecified; I10 Essential (primary) hypertension; I25.2 Old myocardial infarction; Z95.5 Presence of coronary angioplasty implant and graft; J45.909 Unspecified asthma, uncomplicated; Z79.899 Other long term (current) drug therapy; Z79.82 Long term (current) use of aspirin; Z88.0 Allergy status to penicillin; Z88.1 Allergy status to other antibiotic agents; Z88.2 Allergy status to sulfonamides; Z88.8 Allergy status to other drugs, medicaments and biological substances; W11.XXXA Fall on and from ladder, initial encounter
CPT/HCPCS: 93971; 99283; A9270; 99282

== ENCOUNTER 2021-10-26 06:02 | Day surgery (SDC) | payer MEDICARE ==
[2021-10-26] MEDS ORDERED: Bupivacaine 0.5% 30 ML SDV ONE (06:50)
[2021-10-26] MEDS ORDERED: Nozin Nasal Sanitizer NASBOTH ONE (07:00)
[2021-10-26] MEDS ORDERED: Lactated Ringers 1,000 ML IV SCH (07:00)
[2021-10-26] MEDS ORDERED: fentaNYL 100 MCG/2 ML SDV ONE (07:27)
[2021-10-26] MEDS ORDERED: Midazolam 1 MG/ML 2 ML SDV ONE (07:27)
[2021-10-26] MEDS ORDERED: Propofol 200 MG/20 ML SDV ONE ×2 (07:27→08:22)
[2021-10-26] MEDS ORDERED: Lidocaine 0.5% 50 ML SDV ONE (07:29)
[2021-10-26] MEDS ORDERED: Clindamycin Phosphate 900 MG in Sodium Chloride 0.9% 100 ML IV ONE (07:30)
[2021-10-26] MEDS ORDERED: Acetaminophen/HYDROcodone 325-5 MG Tab PO PRN (10:28)
[2021-10-26 10:50] VITALS: PULSE 60
[2021-10-26 11:12] VITALS: BP 114/52
== END 2021-10-26 11:14 | disposition home or self-care (01) ==
LOC: JP.SDS 06:02
PROVIDERS: ATTEND Specialist
DX: M18.11 Unilateral primary osteoarthritis of first carpometacarpal joint, right hand (principal); I10 Essential (primary) hypertension; I25.10 Atherosclerotic heart disease of native coronary artery without angina pectoris; I25.2 Old myocardial infarction; J45.909 Unspecified asthma, uncomplicated; Z98.890 Other specified postprocedural states; Z88.1 Allergy status to other antibiotic agents; Z88.8 Allergy status to other drugs, medicaments and biological substances; Z88.2 Allergy status to sulfonamides
CPT/HCPCS: 25447; A9270; C1768; J2250; J2704; J3010; J3490; J7120

== ENCOUNTER 2021-12-20 06:31 | Day surgery (SDC) | payer MEDICARE ==
[2021-12-20] MEDS ORDERED: Propofol 200 MG/20 ML SDV ONE (06:50)
[2021-12-20] MEDS ORDERED: fentaNYL 100 MCG/2 ML SDV ONE (06:50)
[2021-12-20] MEDS ORDERED: Lactated Ringers 1,000 ML IV SCH (07:00)
[2021-12-20 08:40] VITALS: PULSE 66
[2021-12-20 08:41] VITALS: BP 132/77
== END 2021-12-20 09:00 | disposition home or self-care (01) ==
LOC: JP.SDS 06:31
PROVIDERS: ATTEND Family Medicine
DX: Z12.11 Encounter for screening for malignant neoplasm of colon (principal); D12.0 Benign neoplasm of cecum; K63.89 Other specified diseases of intestine; I10 Essential (primary) hypertension; I25.10 Atherosclerotic heart disease of native coronary artery without angina pectoris; Z87.891 Personal history of nicotine dependence
CPT/HCPCS: 45380; J2704; J3010; J7120

== ENCOUNTER 2022-11-15 10:35 | Emergency (ER) | payer MEDICARE ==
[2022-11-15] MEDS ORDERED: Sodium Chloride 0.9% 10 ML Syringe FLUSH PRN (10:37)
[2022-11-15] MEDS ORDERED: Aspirin 81 MG Tab.Chew PO ONE ×2 (10:47→10:57)
[2022-11-15] MEDS ORDERED: Naloxone 0.4 MG/ML SDV IVPUSH PRN (10:56)
[2022-11-15] MEDS ORDERED: Morphine 2 MG/ML SYRINGE IVPUSH ONE (10:56)
[2022-11-15] MEDS ORDERED: Metoprolol Succinate 50 MG Tab.ER PO ONE (10:59)
[2022-11-15 11:04] LABS: BASOPHILS ABSOLUTE AUTO 0.06 K/uL (0.00-0.10); BASOPHILS PERCENT AUTO 1.1 % (0.1-1.3); EOSINOPHILS ABSOLUTE AUTO 0.35 K/uL (0.00-0.40); EOSINOPHILS PERCENT AUTO 6.2 % (0.0-5.4); HEMATOCRIT 41.3 % (34.3-46.0); IMMATURE GRAN PERCENT AUTO 0.4 % (0.0-0.7); LYMPHOCYTES ABSOLUTE AUTO 1.72 K/uL (0.8-3.3); LYMPHOCYTES PERCENT AUTO 30.6 % (11.4-47.7); MEAN CORPUSCULAR HEMOGLOBIN 28.9 pg (31.6-35.5); MEAN CORPUSCULAR HGB CONC 33.9 g/dL (31.6-35.5); MEAN CORPUSCULAR VOLUME 85.2 fL (81.4-99.0); MONOCYTES ABSOLUTE AUTO 0.42 K/uL (0.20-0.90); MONOCYTES PERCENT AUTO 7.5 % (3.3-12.6); NEUTROPHILS ABSOLUTE AUTO 3.06 K/uL (1.0-7.6); NEUTROPHILS PERCENT AUTO 54.2 % (40.0-78.1); PLATELET COUNT,PLT 242 K/uL (130-375); RED BLOOD CELL COUNT 4.85 M/uL (3.77-5.24); WHITE BLOOD CELL COUNT,WBC 5.6 K/uL (3.2-11.0)
[2022-11-15 11:05] LABS: IMMATURE GRAN ABSOLUTE AUTO 0.02 K/uL (0.00-0.23)
[2022-11-15 11:24] VITALS: PULSE 60
[2022-11-15 11:24] LABS: PROTHROMBIN TIME 10.6 sec (9.2-10.6); PTT,PARTIAL THROMBOPLSTIN TIME 31.9 sec (21.8-27.3)
[2022-11-15 11:26] LABS: A/G RATIO 1.2 (1.2-2.2); ALANINE AMINOTRANSFERASE,ALT 31 U/L (12-78); ALBUMIN 3.8 g/dL (3.4-5.0); ALKALINE PHOSPHATASE 58 U/L (46-116); ASPARTATE AMNIOTRANSFERASE,AST 21 U/L (15-37); BILIRUBIN TOTAL 0.9 mg/dL (0.2-1.0); BLOOD UREA NITROGEN,BUN 15 mg/dL (7-18); CALCIUM 8.5 mg/dL (8.5-10.1); CARBON DIOXIDE,CO2 26 mmol/L (21-32); CHLORIDE,CL 105 mmol/L (100-108); CREATININE 0.9 mg/dL (0.6-1.0); ESTIMATED GFR 69 mL/min (>60); GLUCOSE RANDOM 104 mg/dL (74-106); PROTEIN TOTAL,TP 6.9 g/dL (6.4-8.2); SODIUM,NA 138 mmol/L (140-148)
[2022-11-15 11:27] LABS: TROPONIN I HIGH SENSITIVITY < 4.0 pg/mL (<=60.3)
[2022-11-15] MEDS ORDERED: Lisinopril 5 MG Tab PO ONE (12:28)
[2022-11-15 12:31] VITALS: BP 136/63
== END 2022-11-15 12:48 | disposition home or self-care (01) ==
LOC: JP.ED 10:35
DX: R07.89 Other chest pain (principal); I10 Essential (primary) hypertension; I25.10 Atherosclerotic heart disease of native coronary artery without angina pectoris; E78.00 Pure hypercholesterolemia, unspecified; J45.909 Unspecified asthma, uncomplicated; K21.9 Gastro-esophageal reflux disease without esophagitis; I25.2 Old myocardial infarction; E66.9 Obesity, unspecified; Z68.33 Body mass index [BMI] 33.0-33.9, adult; Z79.82 Long term (current) use of aspirin; Z79.899 Other long term (current) drug therapy; Z88.0 Allergy status to penicillin; Z88.1 Allergy status to other antibiotic agents; Z88.2 Allergy status to sulfonamides; Z88.8 Allergy status to other drugs, medicaments and biological substances
CPT/HCPCS: 36415; 71045; 80053; 84484; 85025; 85379; 85610; 85730; 93005; 96374; 99285; A9270; J2270; J3490; 93010; 99284

== ENCOUNTER 2023-01-01 06:12 | Day surgery (SDC) | payer MEDICARE ==
[2023-01-01] MEDS ORDERED: Nozin Nasal Sanitizer NASBOTH ONE (06:30)
[2023-01-01] MEDS ORDERED: Lactated Ringers 1,000 ML IV SCH (06:30)
[2023-01-01 06:35] LABS: HEMATOCRIT 41.1 % (34.3-46.0); HEMOGLOBIN 13.8 g/dL (11.2-15.5); MEAN CORPUSCULAR HEMOGLOBIN 29.3 pg (31.6-35.5); MEAN CORPUSCULAR HGB CONC 33.6 g/dL (31.6-35.5); MEAN CORPUSCULAR VOLUME 87.3 fL (81.4-99.0); RED BLOOD CELL COUNT 4.71 M/uL (3.77-5.24); WHITE BLOOD CELL COUNT,WBC 5.6 K/uL (3.2-11.0)
[2023-01-01] MEDS ORDERED: Bupivacaine 0.5% 50 ML MDV ONE (06:37)
[2023-01-01 07:01] LABS: A/G RATIO 1.2 (1.2-2.2); ALANINE AMINOTRANSFERASE,ALT 23 U/L (12-78); ALBUMIN 3.8 g/dL (3.4-5.0); ALKALINE PHOSPHATASE 54 U/L (46-116); ANION GAP 10.2 mmol/L (5.0-14.0); ASPARTATE AMNIOTRANSFERASE,AST 22 U/L (15-37); BILIRUBIN TOTAL 0.7 mg/dL (0.2-1.0); BLOOD UREA NITROGEN,BUN 13 mg/dL (7-18); CALCIUM 8.8 mg/dL (8.5-10.1); CARBON DIOXIDE,CO2 27 mmol/L (21-32); CHLORIDE,CL 104 mmol/L (100-108); CREATININE 0.9 mg/dL (0.6-1.0); ESTIMATED GFR 69 mL/min (>60); GLUCOSE RANDOM 101 mg/dL (74-106); POTASSIUM,K 3.9 mmol/L (3.6-5.2); SODIUM,NA 141 mmol/L (140-148)
[2023-01-01] MEDS ORDERED: Propofol 200 MG/20 ML SDV ONE (07:35)
[2023-01-01] MEDS ORDERED: fentaNYL 100 MCG/2 ML SDV ONE (07:35)
[2023-01-01] MEDS ORDERED: Midazolam 1 MG/ML 2 ML SDV ONE (07:35)
[2023-01-01] MEDS ORDERED: Bupivacaine 0.5% 30 ML SDV ONE (07:37)
[2023-01-01] MEDS ORDERED: ceFAZolin 1 GM in Premix Bag 1 BAG IV ONE (08:00)
[2023-01-01 10:01] VITALS: PULSE 72
[2023-01-01] MEDS ORDERED: Acetaminophen/HYDROcodone 325-5 MG Tab PO PRN (10:02)
[2023-01-01 10:31] VITALS: BP 121/63
== END 2023-01-01 10:45 | disposition home or self-care (01) ==
LOC: JP.SDS 06:12
PROVIDERS: ATTEND Specialist
DX: M65.872 Other synovitis and tenosynovitis, left ankle and foot (principal); E78.00 Pure hypercholesterolemia, unspecified; I25.2 Old myocardial infarction; J45.909 Unspecified asthma, uncomplicated; M79.7 Fibromyalgia; Z95.5 Presence of coronary angioplasty implant and graft; Z88.0 Allergy status to penicillin; Z88.2 Allergy status to sulfonamides; Z88.8 Allergy status to other drugs, medicaments and biological substances; Z88.1 Allergy status to other antibiotic agents
CPT/HCPCS: 36415; 80053; 85027; A9270-GY; J0690; J2250; J2704; J3010; J3490; J7120